=== PATIENT | female | born 1985 | race Hispanic/Latino ===

== ENCOUNTER → 2024-03-21 | Day surgery (SDC) | payer OTHER ==
[~2024-03-21] MED LIST: CHOLECALCIFEROL PO; CYANOCOBALAMIN PO; HYDROCHLOROTHIA25 MG PO; LIDOCAINE HCL 2% LOCAL INJ 5 ML SDV VIAL INJ ONE; PROPOFOL IV EMULSION 10 MG/ML 20 ML VIAL ONE; VENLAFAXINE HCL75 M2 PO
[2024-03-21] MEDS: LACTATED RINGER'S 1,000 ML ONE (12:28)
[2024-03-21 14:20] VITALS: BP 118/81; PULSE 93; RESP 16; TEMP 97.7; O2SAT 97
[2024-03-24 07:22] LABS: ENDOMYSIAL ANTIBODIES, IGA Negative (Negative)
[2024-03-24 08:15] LABS: IMMUNOGLOBULIN A 384 mg/dL (87-352); TISSUE TRANSGLUTAMINASE IGA AB <2 U/mL (0-3)
== END | disposition home or self-care (01) ==
LOC: OR 12:03
PROVIDERS: ATTEND Internal Medicine Gastroenterology
DX: K20.90 Esophagitis, unspecified without bleeding (principal); K29.50 Unspecified chronic gastritis without bleeding; K90.0 Celiac disease; I10 Essential (primary) hypertension; G43.909 Migraine, unspecified, not intractable, without status migrainosus; K82.4 Cholesterolosis of gallbladder; Z71.3 Dietary counseling and surveillance; Z68.33 Body mass index [BMI] 33.0-33.9, adult; Z01.812 Encounter for preprocedural laboratory examination; Z01.810 Encounter for preprocedural cardiovascular examination; Z79.899 Other long term (current) drug therapy
CPT/HCPCS: 43239; 81025; 82784; 83516; 86256; 93005; J2003; J2470; J2704; J7121

== ENCOUNTER → 2025-01-22 | Day surgery (SDC) | payer OTHER ==
[~2025-01-22] MED LIST changes: +ACETAMINOPHEN 1000 MG/100 ML 100 ML IV ONE; +DEXAMETHASONE SOD PHOS INJ 4 MG/ML SDV ONE; +EPHEDRINE SULFATE INJ 50 MG/ML VIAL ONE; +FENTANYL CITRATE/PF 100MCG/2 ML INJ ONE; +GLYCOPYRROLATE INJ 0.2 MG/ML VIAL ONE; +NEOSTIGMINE 1 MG/ML 10ML VIAL ONE; +ONDANSETRON HCL INJ 2MG/ML 2ML 2 MG/ML VIAL ONE; +PROTONIX20 MG PO; +ROCURONIUM BROMIDE 1 ML IV ONE; +SEVOFLURANE INHAL SOLN 250 ML PEN BTL ONE
[2025-01-22 08:02] LABS: BASOPHILS % 0.8 % (0.0-1.0); EOSINOPHILS % 2.9 % (0.0-6.0); LYMPHOCYTES % 28.1 % (18.0-39.1); MONOCYTES % 7.9 % (4.4-11.3); NEUTROPHILS % 60.0 % (38.7-80.0); RED CELL DISTRIBUTION WIDTH 13.2 % (11.7-14.4)
[2025-01-22 08:46] LABS: EST GLOMERULAR FILTRATION RATE 108.0 ML/MIN (>=60)
[2025-01-22] MEDS: FENTANYL CITRATE/PF 100MCG/2 ML INJ ONE (10:35)
[2025-01-22 11:35] VITALS: BP 122/76; PULSE 85; RESP 18; O2SAT 97
== END | disposition home or self-care (01) ==
LOC: OR 06:41
PROVIDERS: ATTEND Surgery
DX: K81.1 Chronic cholecystitis (principal); K82.8 Other specified diseases of gallbladder; K21.9 Gastro-esophageal reflux disease without esophagitis; I10 Essential (primary) hypertension; E66.01 Morbid (severe) obesity due to excess calories; F41.9 Anxiety disorder, unspecified; Z88.6 Allergy status to analgesic agent; Z88.0 Allergy status to penicillin; Z88.2 Allergy status to sulfonamides; Z79.899 Other long term (current) drug therapy
CPT/HCPCS: 36415; 47562; 71046; 80053; 81025; 85025; 88304; 93005; C1766; J0131; J1100; J2003; J2405; J2704; J2710; J3010